=== PATIENT | male | born 1965 | race American Indian/Alaskan Native ===

== ENCOUNTER 2018-09-18 12:22 | Emergency (ER) | payer OTHER ==
[2018-09-18 12:32] VITALS: BP 174/109
--- NOTE | 2018-09-18 12:32 | Emergency Department Report ---
Blank Doc - Documentation Documentation: 52 y old male presents with throat pain x saturday stating he had a tonsil infection some weeks ago and was given clinda but did not finish the bottle states pain with swallowing ACC eval
--- NOTE | 2018-09-18 13:03 | Emergency Department Report ---
ED ENT HPI - General Chief complaint: Sore Throat Stated complaint: CANT SWALLOW/THROAT PAIN/SHIVANI Time Seen by Provider: 09/18/18 12:29 Source: patient Mode of arrival: Ambulatory Limitations: No Limitations - History of Present Illness MD complaint: sore throat -: days(s) (5) Severity: moderate - Related Data Allergies Allergy/AdvReac Type Severity Reaction Status Date / Time No Known Allergies Allergy Verified 09/18/18 12:32 ED Dental HPI - General Chief complaint: Sore Throat Stated complaint: CANT SWALLOW/THROAT PAIN/SHIVANI Time Seen by Provider: 09/18/18 12:29 Source: patient Mode of arrival: Ambulatory Limitations: No Limitations - Related Data Allergies Allergy/AdvReac Type Severity Reaction Status Date / Time No Known Allergies Allergy Verified 09/18/18 12:32 ED Review of Systems ROS: Stated complaint: CANT SWALLOW/THROAT PAIN/SHIVANI Other details as noted in HPI Comment: All other systems reviewed and negative Constitutional: denies: chills, fever ENT: throat pain Cardiovascular: denies: chest pain, palpitations Gastrointestinal: denies: abdominal pain, nausea ED Past Medical Hx - Past Medical History Previous Medical History?: Yes Hx Hypertension: Yes - Surgical History Past Surgical History?: No - Social History Smoking Status: Current Every Day Smoker Substance Use Type: None ED Physical Exam - General Limitations: No Limitations General appearance: alert, in no apparent distress - Head Head exam: Present: atraumatic, normocephalic, normal inspection - Eye Eye exam: Present: normal appearance - ENT ENT exam: Present: normal exam, normal orophraynx, mucous membranes moist, other (tonsillitis) - Neck Neck exam: Present: normal inspection, full ROM. Absent: tenderness, meningismus, lymphadenopathy, thyromegaly - Respiratory Respiratory exam: Present: normal lung sounds bilaterally - Cardiovascular Cardiovascular Exam: Present: regular rate, normal rhythm, normal heart sounds - GI/Abdominal GI/Abdominal exam: Present: soft. Absent: distended, tenderness, guarding, rebound - Extremities Exam Extremities exam: Present: normal inspection, full ROM, normal capillary refill - Back Exam Back exam: Present: normal inspection - Neurological Exam Neurological exam: Present: alert, oriented X3 ED Course Vital Signs 09/18/18 12:30 Temperature 98.3 F Pulse Rate 77 Respiratory 16 Rate Blood Pressure 174/109 O2 Sat by Pulse 97 Oximetry Critical care attestation.: If time is entered above; I have spent that time in minutes in the direct care of this critically ill patient, excluding procedure time. ED Disposition Clinical Impression: Tonsillitis Disposition: DC-01 TO HOME OR SELFCARE Is pt being admited?: No Condition: Stable Instructions: Tonsillitis (ED) Referrals: PRIMARY CARE, [Referring] - 3-5 Days
== END 2018-09-18 13:15 | disposition home or self-care (01) ==
LOC: ED 12:22
DX: J03.90 Acute tonsillitis, unspecified (principal); F17.200 Nicotine dependence, unspecified, uncomplicated; I10 Essential (primary) hypertension
CPT/HCPCS: 87116; 87430

== ENCOUNTER 2019-03-02 17:30 | Emergency (ER) | payer OTHER ==
--- NOTE | 2019-03-02 17:38 | Event Note ---
ED Screening Note Date of service: 03/02/19 Time: 17:36 ED Screening Note: 53 y o male presents with stroke like sx at 12 am this morning mildly altered, pos facial droop code stroke called This initial assessment/diagnostic orders/clinical plan/treatment(s) is/are subject to change based on patients health status, clinical progression and re- assessment by fellow clinical providers in the ED. Further treatment and workup at subsequent clinical providers discretion. Patient/guardian urged not to elope from the ED as their condition may be serious if not clinically assessed and managed. Initial orders include: labs, CT scan, roomed 2
[2019-03-02 18:06] LABS: Basophils # (Auto) 0.1 K/mm3 (0.0-0.1); Basophils % (Auto) 1.1 % (0.0-1.8); Eosinophils # (Auto) 0.3 K/mm3 (0.0-0.4); Eosinophils % (Auto) 4.2 % (0.0-4.3); Hematocrit 48.2 % (35.5-45.6); Hemoglobin 16.2 gm/dl (11.8-15.2); Lymphocytes # (Auto) 2.3 K/mm3 (1.2-5.4); Lymphocytes % (Auto) 29.9 % (13.4-35.0); Mean Corpuscular HGB Conc 34 % (32-34); Mean Corpuscular Volume 89 fl (84-94); Monocytes # (Auto) 0.6 K/mm3 (0.0-0.8); Monocytes % (Auto) 7.6 % (0.0-7.3); Platelet Count 230 K/mm3 (140-440); Red Blood Count 5.43 M/mm3 (3.65-5.03); Red Cell Distribution Width 15.5 % (13.2-15.2)
--- NOTE | 2019-03-02 18:19 | Cat Scan Report ---
CT head/brain wo con INDICATION / CLINICAL INFORMATION: 53 years Male; vishal stroke. TECHNIQUE: Routine CT head without contrast. All CT scans at this location are performed using CT dos e reduction for ALARA by means of automated exposure control. COMPARISON: None. FINDINGS: BRAIN / INTRACRANIAL CONTENTS: There is mild cerebral white matter disease most consistent with micro vascular angiopathy. Furthermore, there is a small 9 mm focus of decreased attenuation along the left frontoparietal junction; correlation would be needed given the history of unspecified "stroke". Ther e is no CT evidence of acute intracranial hemorrhage or significant mass effect. ORBITS: No significant abnormality of visualized orbits. SINUSES / MASTOIDS: No significant abnormality the visualized paranasal sinuses or mastoid air cells. CRANIOCERVICAL JUNCTION: No significant abnormality. ADDITIONAL FINDINGS: None. IMPRESSION: 1. There is mild microvascular angiopathy without CT evidence of acute intracranial hemorrhage. 2. Additionally, there is a 9 mm focus of decreased attenuation along the left frontoparietal junctio n as detailed above. The study was specified as code stroke and called emergently to Dr. Kwon in the ER at 5:10 PM Central standard time. Signer Name: Renaldo Ugalde MD Signed: 03/02/2019 6:14 PM Workstation Name: [id number]
[2019-03-02 18:21] LABS: INR 1.08 (0.87-1.13)
[2019-03-02 18:22] LABS: Creatine Kinase MB 4.9 ng/mL (0.0-4.0); Partial Thromboplastin Time 29.7 Sec. (24.2-36.6); Thrombin Time 17.7 Sec. (15.1-19.6)
--- NOTE | 2019-03-02 18:34 | Emergency Department Report ---
ED Neuro Deficit HPI - General Chief Complaint: Neuro Symptoms/Deficit Stated Complaint: RIGHT SIDE WEAKNESS Time Seen by Provider: 03/02/19 17:50 Source: patient, family Mode of arrival: Wheelchair Limitations: Altered Mental Status - History of Present Illness Initial Comments: [facility] Date of Service: 03/02/2019 17:44:55 Impression: RO Acute Ischemic Stroke Large Vessel Infarct Left Hemispheric Comments: Patient presents with what appears to be left hemispheric infarct clinically. CT head showed small hypoattenuation left posterior frontal region, and possibly left deep campos matter. No indication of acute hemorrhage. Discussed case with ED physician. Recommended to obtain CTA head and neck for further evaluation. Patient presents beyond the window of time for tPA and so, is not candidate for tPA thrombolytics. Metrics: Last Known Well: 03/02/2019 02:00:00 [employer] Notification Time: 03/02/2019 17:42:46 Arrival Time: 03/02/2019 17:55:03 Stamp Time: 03/02/2019 17:44:55 Time First Login Attempt: 03/02/2019 17:52:00 Video Start Time: 03/02/2019 17:52:00 Symptoms: right sided weakness and difficulty with speaking NIHSS Start Assessment Time: 03/02/2019 17:58:47 Patient is not a candidate for tPA. Patient was not deemed candidate for tPA thrombolytics because of Last Well Known Above 4.5 Hours. Video End Time: 03/02/2019 18:16:22 CT head was reviewed. Advanced imaging CTA head and neck obtained. Advanced imaging CTP obtained. Radiologist was not called back for review of advanced imaging because CT head reviewed. ER Physician notified of the decision on thrombolytics management on 03/02/2019 18:16:22 Our recommendations are outlined below. Recommendations: Activate Stroke Protocol Admission/Order Set Stroke/Telemetry Floor Neuro Checks Bedside Swallow Eval DVT Prophylaxis IV Fluids, Normal Saline Head of Bed Below 30 Degrees Euglycemia and Avoid Hyperthermia (PRN Acetaminophen) Antiplatelet Therapy Recommended Recommended Scan: MRI Head with and Without Contrast Lipid Panel to Be Obtained, if Not Done in the Last Three Months Therapies: Physical Therapy, Occupational Therapy, Speech Therapy Assessment When Applicable Dysphaghia Screen: Swallow Evaluation, Bedside DVT prophylaxis: SCDs, Pneumatic Compression Sign Out: Discussed with Emergency Department Provider History of Present Illness: Patient is a 53 year old Male. Patient was brought by private transportation with symptoms of right sided weakness and difficulty with speaking Patient was last seen well this morning at 200 am. He was then noted by family when he woke up at 400 am, at which time he was noted to have difficulty getting up from a supine position. he was not able to stand up and was noted to have significant right sided weakness and difficulty with speaking. His eventually brought him here for further evaluation now. His provides the history as the patient has global and severe aphasia. CT head was reviewed. Last seen normal was beyond 4.5 hours of presentation. There is no history of hemorrhagic complications or intracranial hemorrhage. There is no history of Recent Anticoagulants. There is no history of recent major surgery. There is no history of recent stroke. Examination: 1A: Level of Consciousness - Alert; keenly responsive + 0 1B: Ask Month and Age - Aphasic + 2 1C: Blink Eyes & Squeeze Hands - Performs Both Tasks + 0 2: Test Horizontal Extraocular Movements - Normal + 0 3: Test Visual Plunkett - No Visual Loss + 0 4: Test Facial Palsy (Use Grimace if Obtunded) - Normal symmetry + 0 5A: Test Left Arm Motor Drift - No Drift for 10 Seconds + 0 5B: Test Right Arm Motor Drift - Drift, but doesn't hit bed + 1 6A: Test Left Leg Motor Drift - No Drift for 5 Seconds + 0 6B: Test Right Leg Motor Drift - Drift, but doesn't hit bed + 1 7: Test Limb Ataxia (FNF/Heel-Gonzalez) - No Ataxia + 0 8: Test Sensation - Normal; No sensory loss + 0 9: Test Language/Aphasia - Severe Aphasia: Fragmentary Expression, Inference Needed, Cannot Identify Materials + 2 10: Test Dysarthria - Mild-Moderate Dysarthria: Slurring but can be understood + 1 11: Test Extinction/Inattention - No abnormality + 0 NIHSS Score: 7 Patient was informed the Neurology Consult would happen via TeleHealth consult by way of interactive audio and video telecommunications and consented to receiving care in this manner. Due to the immediate potential for life-threatening deterioration due to underlying acute neurologic illness, I spent 35 minutes providing critical care. This time includes time for face to face visit via telemedicine, review of medical records, imaging studies and discussion of findings with providers, the patient and/or family. Dr Clay Da Silva [employer] - Related Data Home Medications: Home Medications Medication Instructions Recorded Confirmed Last Taken No Known Home Medications [No 03/02/19 03/02/19 Unknown Reported Home Medications] Allergies/Adverse Reactions: Allergies Allergy/AdvReac Type Severity Reaction Status Date / Time No Known Allergies Allergy Verified 03/02/19 17:38 ED Review of Systems ROS: Stated complaint: RIGHT SIDE WEAKNESS Other details as noted in HPI ED Past Medical Hx - Past Medical History Previous Medical History?: Yes Hx Hypertension: Yes - Social History Smoking Status: Never Smoker Substance Use Type: None - Medications Home Medications: Home Medications Medication Instructions Recorded Confirmed Last Taken Type No Known Home Medications [No 03/02/19 03/02/19 Unknown History Reported Home Medications] ED Neuro Physical Exam - General Limitations: Altered Mental Status Suspected Stroke: Yes - NIHSS Assessment Interval: Baseline 1a. Level of Consciousness: alert/keenly responsive 1b. LOC Questions: aphasic 1c. LOC Commands: performs tasks correctly 2. Best Gaze: normal 3. Visual: no visual loss 4. Facial Palsy: normal symmetrical movement 5b. Motor Arm Right: drift 5a. Motor Arm Left: no drift 6a. Motor Leg Left: no drift 6b. Motor Leg Right: drift 7. Limb Ataxia: absent 8. Sensory: normal 9. Best Language: severe aphasia 10. Dysarthria: mild/moderate dysarthria 11. Extinction/Inattention: no abnormality Total Score: 7 Stroke Severity: Moderate Stroke ED Course Vital Signs 03/02/19 18:12 Temperature 98.7 F Pulse Rate 80 Respiratory 17 Rate Blood Pressure 150/99 Blood Pressure 150/99 [Left] O2 Sat by Pulse 97 Oximetry - Lab Data Result diagrams: 03/02/19 17:55 Lab Results 03/02/19 03/02/19 03/02/19 Range/Units 17:55 17:55 17:55 WBC 7.6 (4.5-11.0) K/mm3 RBC 5.43 H (3.65-5.03) M/mm3 Hgb 16.2 H (11.8-15.2) gm/dl Hct 48.2 H (35.5-45.6) % MCV 89 (84-94) fl MCH 30 (28-32) pg MCHC 34 (32-34) % RDW 15.5 H (13.2-15.2) % Plt Count 230 (140-440) K/mm3 Lymph % (Auto) 29.9 (13.4-35.0) % Ness % (Auto) 7.6 H (0.0-7.3) % Eos % (Auto) 4.2 (0.0-4.3) % Baso % (Auto) 1.1 (0.0-1.8) % Lymph # 2.3 (1.2-5.4) K/mm3 Ness # 0.6 (0.0-0.8) K/mm3 Eos # 0.3 (0.0-0.4) K/mm3 Baso # 0.1 (0.0-0.1) K/mm3 Seg Neutrophils % 57.2 (40.0-70.0) % Seg Neutrophils # 4.3 (1.8-7.7) K/mm3 PT 13.9 (12.2-14.9) Sec. INR 1.08 (0.87-1.13) APTT 29.7 (24.2-36.6) Sec. Thrombin Time 17.7 (15.1-19.6) Sec. POC Glucose (70-105) Total Creatine Kinase 230 H (55-170) units/L CK-MB (CK-2) 4.9 H (0.0-4.0) ng/mL CK-MB (CK-2) Rel Index 2.1 (0-4) Troponin T < 0.010 (0.00-0.029) ng/mL 03/02/19 Range/Units 18:33 WBC (4.5-11.0) K/mm3 RBC (3.65-5.03) M/mm3 Hgb (11.8-15.2) gm/dl Hct (35.5-45.6) % MCV (84-94) fl MCH (28-32) pg MCHC (32-34) % RDW (13.2-15.2) % Plt Count (140-440) K/mm3 Lymph % (Auto) (13.4-35.0) % Ness % (Auto) (0.0-7.3) % Eos % (Auto) (0.0-4.3) % Baso % (Auto) (0.0-1.8) % Lymph # (1.2-5.4) K/mm3 Ness # (0.0-0.8) K/mm3 Eos # (0.0-0.4) K/mm3 Baso # (0.0-0.1) K/mm3 Seg Neutrophils % (40.0-70.0) % Seg Neutrophils # (1.8-7.7) K/mm3 PT (12.2-14.9) Sec. INR (0.87-1.13) APTT (24.2-36.6) Sec. Thrombin Time (15.1-19.6) Sec. POC Glucose 104 (70-105) Total Creatine Kinase (55-170) units/L CK-MB (CK-2) (0.0-4.0) ng/mL CK-MB (CK-2) Rel Index (0-4) Troponin T (0.00-0.029) ng/mL Critical care attestation.: If time is entered above; I have spent that time in minutes in the direct care of this critically ill patient, excluding procedure time. ED Disposition Clinical Impression: Stroke Disposition: DC/[facility]- [facility] IP Is pt being admited?: Yes Condition: Stable
--- NOTE | 2019-03-02 19:03 | Emergency Department Report ---
<GWEN BUCHANAN - Last Filed: 03/02/19 19:03> ED General Adult HPI - General Chief complaint: Neuro Symptoms/Deficit Stated complaint: RIGHT SIDE WEAKNESS Time Seen by Provider: 03/02/19 17:50 Source: patient, family Mode of arrival: Wheelchair Limitations: Altered Mental Status - History of Present Illness Initial comments: Patient is a 53-year-old male who approximately 2 AM was noted to have some weakness to his right side. Patient was unable to walk secondary to this weakness. Patient's symptoms in other states that he also has slurred speech as well. Patient is never had these symptoms before. Patient's denies drug or alcohol abuse. Patient denies chest pain shortness of breath fevers or chills. Severity scale (0 -10): 0 - Related Data Home Medications Medication Instructions Recorded Confirmed Last Taken No Known Home Medications [No 03/02/19 03/02/19 Unknown Reported Home Medications] Allergies Allergy/AdvReac Type Severity Reaction Status Date / Time No Known Allergies Allergy Verified 03/02/19 17:38 ED Review of Systems Comment: All other systems reviewed and negative ED Past Medical Hx - Past Medical History Previous Medical History?: Yes Hx Hypertension: Yes - Social History Smoking Status: Never Smoker Substance Use Type: None - Medications Home Medications: Home Medications Medication Instructions Recorded Confirmed Last Taken Type No Known Home Medications [No 03/02/19 03/02/19 Unknown History Reported Home Medications] ED Physical Exam - General Limitations: Altered Mental Status General appearance: alert, in no apparent distress - Head Head exam: Present: atraumatic, normocephalic - Eye Eye exam: Present: normal appearance, PERRL, EOMI - ENT ENT exam: Present: mucous membranes moist - Neck Neck exam: Present: normal inspection - Respiratory Respiratory exam: Present: normal lung sounds bilaterally. Absent: respiratory distress, wheezes, rales, rhonchi - Cardiovascular Cardiovascular Exam: Present: regular rate, normal rhythm. Absent: systolic murmur, diastolic murmur, rubs, gallop - GI/Abdominal GI/Abdominal exam: Present: soft, normal bowel sounds. Absent: distended, tenderness, guarding, rebound - Rectal Rectal exam: Present: deferred - Extremities Exam Extremities exam: Present: normal inspection - Back Exam Back exam: Present: normal inspection - Neurological Exam Neurological exam: Present: alert, oriented X3, motor sensory deficit - Psychiatric Psychiatric exam: Present: normal affect, normal mood - Skin Skin exam: Present: warm, dry, intact, normal color. Absent: rash ED Course - Reevaluation(s) Reevaluation #1: 03/02/19 19:04 Patient is a 53-year-old male who is presenting with aphasia and right- sided weakness. Patient CT shows possible acute CVA. CTA of the head has been ordered to rule out large vessel occlusion. ED Medical Decision Making - Lab Data Result diagrams: 03/02/19 17:55 Lab Results 03/02/19 03/02/19 03/02/19 Range/Units 17:55 17:55 17:55 WBC 7.6 (4.5-11.0) K/mm3 RBC 5.43 H (3.65-5.03) M/mm3 Hgb 16.2 H (11.8-15.2) gm/dl Hct 48.2 H (35.5-45.6) % MCV 89 (84-94) fl MCH 30 (28-32) pg MCHC 34 (32-34) % RDW 15.5 H (13.2-15.2) % Plt Count 230 (140-440) K/mm3 Lymph % (Auto) 29.9 (13.4-35.0) % [place] % (Auto) 7.6 H (0.0-7.3) % Eos % (Auto) 4.2 (0.0-4.3) % Baso % (Auto) 1.1 (0.0-1.8) % Lymph # 2.3 (1.2-5.4) K/mm3 [place] # 0.6 (0.0-0.8) K/mm3 Eos # 0.3 (0.0-0.4) K/mm3 Baso # 0.1 (0.0-0.1) K/mm3 Seg Neutrophils % 57.2 (40.0-70.0) % Seg Neutrophils # 4.3 (1.8-7.7) K/mm3 PT 13.9 (12.2-14.9) Sec. INR 1.08 (0.87-1.13) APTT 29.7 (24.2-36.6) Sec. Thrombin Time 17.7 (15.1-19.6) Sec. POC Glucose (70-105) Total Creatine Kinase 230 H (55-170) units/L CK-MB (CK-2) 4.9 H (0.0-4.0) ng/mL CK-MB (CK-2) Rel Index 2.1 (0-4) Troponin T < 0.010 (0.00-0.029) ng/mL 03/02/19 Range/Units 18:33 WBC (4.5-11.0) K/mm3 RBC (3.65-5.03) M/mm3 Hgb (11.8-15.2) gm/dl Hct (35.5-45.6) % MCV (84-94) fl MCH (28-32) pg MCHC (32-34) % RDW (13.2-15.2) % Plt Count (140-440) K/mm3 Lymph % (Auto) (13.4-35.0) % [place] % (Auto) (0.0-7.3) % Eos % (Auto) (0.0-4.3) % Baso % (Auto) (0.0-1.8) % Lymph # (1.2-5.4) K/mm3 [place] # (0.0-0.8) K/mm3 Eos # (0.0-0.4) K/mm3 Baso # (0.0-0.1) K/mm3 Seg Neutrophils % (40.0-70.0) % Seg Neutrophils # (1.8-7.7) K/mm3 PT (12.2-14.9) Sec. INR (0.87-1.13) APTT (24.2-36.6) Sec. Thrombin Time (15.1-19.6) Sec. POC Glucose 104 (70-105) Total Creatine Kinase (55-170) units/L CK-MB (CK-2) (0.0-4.0) ng/mL CK-MB (CK-2) Rel Index (0-4) Troponin T (0.00-0.029) ng/mL - EKG Data -: EKG Interpreted by N[place] EKG shows normal: sinus rhythm, axis, intervals, QRS complexes, ST-T waves Rate: normal - EKG Data Interpretation: normal EKG - Radiology Data CT head/brain wo con INDICATION / CLINICAL INFORMATION: 53 years Male; vishal stroke. TECHNIQUE: Routine CT head without contrast. All CT scans at this location are performed using CT dose reduction for ALARA by means of automated exposure control. COMPARISON: None. FINDINGS: BRAIN / INTRACRANIAL CONTENTS: There is mild cerebral white matter disease most consistent with microvascular angiopathy. Furthermore, there is a small 9 mm focus of decreased attenuation along the left frontoparietal junction; correlation would be needed given the history of unspecified "stroke". There is no CT evidence of acute intracranial hemorrhage or significant mass effect. ORBITS: No significant abnormality of visualized orbits. SINUSES / MASTOIDS: No significant abnormality the visualized paranasal sinuses or mastoid air cells. CRANIOCERVICAL JUNCTION: No significant abnormality. ADDITIONAL FINDINGS: None. IMPRESSION: 1. There is mild microvascular angiopathy without CT evidence of acute intracranial hemorrhage. 2. Additionally, there is a 9 mm focus of decreased attenuation along the left frontoparietal junction as detailed above. The study was specified as code stroke and called emergently to Dr. Kwon in the ER at 5:10 PM Central standard time. Signer Name: Renaldo Ugalde MD Signed: 03/02/2019 6:14 PM Workstation Name: [id number] ED Disposition Clinical Impression: Stroke, Left middle cerebral artery stroke Disposition: DC/TX-70 [facility] Condition: Stable - Scoring Stroke Severity: Moderate Stroke <LEANN PATRICK - Last Filed: 03/02/19 23:24> ED Review of Systems ROS: Stated complaint: RIGHT SIDE WEAKNESS Other details as noted in HPI ED Course Vital Signs 03/02/19 03/02/19 03/02/19 18:12 18:35 20:43 Temperature 98.7 F Pulse Rate 80 65 86 Respiratory 17 17 16 Rate Blood Pressure 150/99 Blood Pressure 150/99 153/109 183/72 [Left] O2 Sat by Pulse 97 97 99 Oximetry 03/02/19 22:18 Temperature Pulse Rate 58 L Respiratory 22 Rate Blood Pressure Blood Pressure 159/98 [Left] O2 Sat by Pulse 96 Oximetry - Reevaluation(s) Reevaluation #1: 03/02/19 22:23 there was a significant delay in obtaining cta head. I received critical findings and now awaitng chani call back to see if pt is a candidate for transfer. - Consultations Consultation #1: 03/02/19 22:18 case d/w Dr Gogo Romano Neuro interventionalists and will review ct and call back 03/02/19 22:28 She reviewed images and will call back again after discussion with fellow interventionists 03/02/19 22:45 PT ACCEPTED TO [facility]. No intervention planned at this time however, they will perform additional imaging and plan to perform intervention if patient deteriorates. ED Medical Decision Making - Lab Data Result diagrams: 03/02/19 17:55 03/02/19 17:50 - Radiology Data Radiology results: report reviewed CT angio head INDICATION / CLINICAL INFORMATION: 53 years Male; right sided stroke symptoms. TECHNIQUE: Thin cut axial images obtained through the head during IV bolus contrast administration. Sagittal, coronal, and 3 plane MIP reconstructions performed by the technologist. NASCET type criteria used evaluate stenoses. Automated exposure control utilized for radiation reduction purposes. COMPARISON: None available. FINDINGS: INTERNAL CAROTID ARTERIES: No significant narrowing appreciated. VERTEBROBASILAR SYSTEM: No significant narrowing appreciated. The nondominant right vertebral artery largely terminates in the right PICA territory. Areas of minimal narrowing suggested in the basilar artery. DISTAL BRANCHES: Distal branches of the anterior cerebral arteries are fairly symmetric in appearance. However, there appears to be near complete occlusion of the mid to distal M1 segment on the left, with relative decreased flow seen in the left MCA territory, when compared with the right. Are as of mild narrowing seen in the M1 segment on the right, as well. There is also mild narrowing of the P1 - P2 region on the left with mild decreased flow in the distal left [employer], when compared with the right. The P1 segment on the right is hypoplastic, which is a normal variant. A majority of blood flow to the right posterior cerebral artery is via the posterior communicating artery on the right. ANEURYSM: None identified. ADDITIONAL FINDINGS: Remainder of the surrounding soft tissues are grossly normal. IMPRESSION: Abnormal findings, as described above. Most prevalent finding is in the mid to lateral M1 segment on the left which appears to be occluded. CT ANGIO NECK: NO SIG STENOSIS - Medical Decision Making informed the patient's plan for transfer to [place] for closer monitoring, additional imaging, and plan for intervention if patient deteriorates. Rec asa 81 mg and [place] 180 mg if pt can swallow. Critical Care Time: No Critical care attestation.: If time is entered above; I have spent that time in minutes in the direct care of this critically ill patient, excluding procedure time. ED Disposition Is pt being admited?: No Does the pt Need Aspirin: No Time of Disposition: 22:54 ([place])
[2019-03-02 19:23] LABS: BUN/Creatinine Ratio 11; Blood Urea Nitrogen 13 mg/dL (9-20); Calcium 9.1 mg/dL (8.4-10.2); Hemolysis Index 16
--- NOTE | 2019-03-02 22:02 | Cat Scan Report ---
CT angio head INDICATION / CLINICAL INFORMATION: 53 years Male; right sided stroke symptoms. TECHNIQUE: Thin cut axial images obtained through the head during IV bolus contrast administration. S agittal, coronal, and 3 plane MIP reconstructions performed by the technologist. NASCET type criteria used evaluate stenoses. Automated exposure control utilized for radiation reduction purposes. COMPARISON: None available. FINDINGS: INTERNAL CAROTID ARTERIES: No significant narrowing appreciated. VERTEBROBASILAR SYSTEM: No significant narrowing appreciated. The nondominant right vertebral artery largely terminates in the right PICA territory. Areas of minimal narrowing suggested in the basilar a rtery. DISTAL BRANCHES: Distal branches of the anterior cerebral arteries are fairly symmetric in appearance . 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 Areas of mild narrowing seen in the M1 segment on the right, as well. There is also mild narrowing of the P1 - P2 region on the left with mild decreased flow in the distal left PHOTOGRAPHER, when compared with the right. The P1 segment on the right is hypoplastic, which is a katie l variant. A majority of blood flow to the right posterior cerebral artery is via the posterior commu nicating artery on the right. ANEURYSM: None identified. ADDITIONAL FINDINGS: Remainder of the surrounding soft tissues are grossly normal. IMPRESSION: Abnormal findings, as described above. Most prevalent finding is in the mid to lateral M1 segment on the left which appears to be occluded. Signer Name: Baldomero Arellano MD, III Signed: 03/02/2019 9:57 PM Workstation Name: [id number]
--- NOTE | 2019-03-02 22:12 | Cat Scan Report ---
CT angio neck INDICATION / CLINICAL INFORMATION: 53 years Male; right sided stroke symptoms. TECHNIQUE: Thin cut axial images obtained through the head during IV bolus contrast administration. S agittal, coronal, and 3 plane MIP reconstructions performed by the technologist. NASCET type criteria used evaluate stenoses. All CT scans at this location are performed using CT dose reduction for ALAR A by means of automated exposure control. COMPARISON: None available. FINDINGS: ARCH: Normal aortic arch branching suggested. CAROTID ARTERIES: The visualized common and internal carotid arteries are widely patent. Note, the or igin of the right common carotid artery is not well visualized because of streak artifact from dense contrast in the right subclavian vein. VERTEBRAL ARTERIES: Left dominant vertebral system seen. No significant stenosis appreciated. ADDITIONAL FINDINGS: Disc space narrowing seen at C5-6, C6-7, C7-T1. There is a prominent left parace ntral disc protrusion and spondylosis at C5-6 which may flatten the left anterior hemicord. Follow-up with MRI, as clinically warranted. Prominent palatine and lingual tonsillar tissue seen, which may be reactive. Please clinically correl ate. Prominent adenoidal tissue noted as well. Mild mucosal thickening seen in the ethmoids. Poor dentition noted. IMPRESSION: No significant stenosis appreciated on this CTA of the neck. Signer Name: Baldomero Arellano MD, III Signed: 03/02/2019 10:07 PM Workstation Name: [id number]
[2019-03-02 22:19] VITALS: BP 159/98
[2019-03-02] MEDS ORDERED: ASPIRIN 325 MG TAB PO ONE ×2 (22:55→23:10)
[2019-03-02] MEDS ORDERED: ASPIRIN EC 81 MG TAB PO ONE (23:00)
[2019-03-02] MEDS ORDERED: TICAGRELOR 90 MG TAB PO ONE (23:15)
== END 2019-03-03 00:30 | disposition other institution (70) ==
LOC: ED 17:30
DX: I63.9 Cerebral infarction, unspecified (principal); I10 Essential (primary) hypertension
CPT/HCPCS: 36415; 70450; 70496; 70498; 80048; 82550; 82553; 82962; 84484; 85025; 85610; 85670; 85730; 93005; 93010; 99285; Q9967